=== PATIENT | female | born 1965 | race Two or more races ===

== ENCOUNTER 2019-11-15 09:15 | Inpatient (IN) | payer OTHER ==
[~2019-11-15] VITALS: Ht 170.2 cm; Wt 104.3 kg
[~2019-11-15 09:15] MED LIST: INTEGRA PLUS C1 EACH PO; OXYC1TAB9 PO; XARELTO10 MG PO
[2019-11-15] MEDS ORDERED: COZAAR50 MG PO (12:12)
[2019-12-01] MEDS ORDERED: INTEGRA PLUS C1 EACH PO (05:55)
[2019-12-01] MEDS ORDERED: BACTRIM DS TAB1 EACH PO (05:55)
[2019-12-01] MEDS ORDERED: XARELTO10 MG PO (05:55)
[2019-12-01] MEDS ORDERED: OXYC1TAB9 PO (05:55)
== END 2019-12-01 12:21 | disposition home or self-care (01) | DRG 470 ==
LOC: SURH 11-22 07:00 → O/R 11-29 06:00 → SURH 11-29 09:15
PROVIDERS: ADMIT Orthopaedic Surgery Sports Medicine; ATTEND Orthopaedic Surgery Sports Medicine
PROC: 0SRC0J9 Replacement of Right Knee Joint with Synthetic Substitute, Cemented, Open Approach (ICD-10-PCS; principal; 2019-11-29 10:30)
DX: M17.11 Unilateral primary osteoarthritis, right knee (principal); I10 Essential (primary) hypertension